=== PATIENT | female | born 1965 | race Caucasian/White ===

== ENCOUNTER 2022-12-22 07:20 | Inpatient (IN) ==
--- NOTE | 2022-11-23 15:16 | PAT Medication Instructions ---
Medication Instructions Date of Service November 23, 2022 Home Medications albuterol sulfate 90 mcg/actuation aerosol inhaler (Ventolin HFA) 1 inh inhalation QID PRN amlodipine 10 mg tablet 10 mg PO HS aspirin 81 mg tablet,delayed release 81 mg PO QAM atorvastatin 40 mg tablet (Lipitor) 40 mg PO HS celecoxib 400 mg capsule (Celebrex) 400 mg PO QAM cholecalciferol (vitamin D3) 50 mcg (2,000 unit) capsule (Vitamin D3) 50 mcg PO QAM citalopram 20 mg tablet (Celexa) 20 mg PO QAM duloxetine 20 mg capsule,delayed release (Cymbalta) 20 mg PO QAM eszopiclone 2 mg tablet (Lunesta) 2 mg PO HS fluticasone propionate 115 mcg-salmeterol 21 mcg/actuation HFA inhaler (Advair HFA) 2 puff inhalation BID PRN losartan 100 mg tablet (Cozaar) 100 mg PO QAM metformin 500 mg tablet 500 mg PO BID methocarbamol 750 mg tablet 750 mg PO BID mirtazapine 30 mg tablet (Remeron) 30 mg PO HS montelukast 10 mg tablet (Singulair) 10 mg PO QAM pantoprazole 40 mg tablet,delayed release (Protonix) 40 mg PO HS tramadol 50 mg tablet 50 mg PO BID PRN ASK your surgeon for instructions celecoxib 400 mg capsule (Celebrex) 400 mg PO QAM ASK your prescriber and surgeon aspirin 81 mg tablet,delayed release 81 mg PO QAM DO NOT take the morning of surgery metformin 500 mg tablet 500 mg PO BID methocarbamol 750 mg tablet 750 mg PO BID losartan 100 mg tablet (Cozaar) 100 mg PO QAM cholecalciferol (vitamin D3) 50 mcg (2,000 unit) capsule (Vitamin D3) 50 mcg PO QAM Take morning of surgery With a small sip of water, OTHERWISE NOTHING TO EAT OR DRINK AFTER MIDNIGHT: tramadol 50 mg tablet 50 mg PO BID PRN(if needed) montelukast 10 mg tablet (Singulair) 10 mg PO QAM fluticasone propionate 115 mcg-salmeterol 21 mcg/actuation HFA inhaler (Advair HFA) 2 puff inhalation BID PRN(if needed) citalopram 20 mg tablet (Celexa) 20 mg PO QAM duloxetine 20 mg capsule,delayed release (Cymbalta) 20 mg PO QAM albuterol sulfate 90 mcg/actuation aerosol inhaler (Ventolin HFA) 1 inh inhalation QID PRN(use if needed; please bring with you to hospital day of surgery if possible) Take evening before surgery tramadol 50 mg tablet 50 mg PO BID PRN(if needed) pantoprazole 40 mg tablet,delayed release (Protonix) 40 mg PO HS mirtazapine 30 mg tablet (Remeron) 30 mg PO HS metformin 500 mg tablet 500 mg PO BID methocarbamol 750 mg tablet 750 mg PO BID fluticasone propionate 115 mcg-salmeterol 21 mcg/actuation HFA inhaler (Advair HFA) 2 puff inhalation BID PRN(if needed) eszopiclone 2 mg tablet (Lunesta) 2 mg PO HS atorvastatin 40 mg tablet (Lipitor) 40 mg PO HS amlodipine 10 mg tablet 10 mg PO HS albuterol sulfate 90 mcg/actuation aerosol inhaler (Ventolin HFA) 1 inh inhalation QID PRN(if needed) Other Notes If you have any questions please call us at [phone] or [phone] or [phone] or [phone]
--- NOTE | 2022-11-28 11:24 | Anesthesiology Consultation ---
Date of Service November 28, 2022 Assessment & Plan (1) Encounter for pre-operative examination: Chart Review Chart Review: Acceptable Risk for Surgery (pending PCP clearance 11/30/22, carotid doppler, and cardio clearance ) and Patient seen in Pre Admission Testing - Awaiting PCP clearance 11/30/22 (Michelle HAYWARD in [place], [place]) (Please send preop testing for review) - Awaiting cardio clearance letter from Dr. James's office (Leanne calling cardio office again 11/29/22) - Please fax cardio office (Dr. De Leon) for most recent carotid testing - Check [facility] AM DOS Per PAT appt on 11/28/22, patient denies any recent travel or large group activities. Pt is vaccinated for Covid. Will leave to surgeon's discretion if preop Covid testing needed. Educated on importance of using Covid precautions o ne week prior to surgery Teaching & Discussion Pre-Anesthesia Teaching/Discussion Notes: Instructed NPO after midnight before surgery,except medications with 15 cc of water. Medication instructions provided according to the PAT guidelines. History Surgery Operation Date: 12/12/22 10:05 Proposed Procedures p L5-S1 Decompression and Fusion - Kiko James, Height/Weight Height: 4 ft 11 in Weight: 87.6 kg Allergies Allergy/AdvReac Type Severity Reaction Status Date / Time cephalexin [From Keflex] Allergy Intermediate Hives Verified 11/23/22 14:03 latex Allergy Intermediate Hives Verified 11/23/22 14:03 Medications Home Medications Medication Instructions Recorded Confirmed Last Taken albuterol sulfate 90 mcg/actuation 1 inh inhalation QID PRN Wheezing 11/23/22 11/23/22 Unknown aerosol inhaler (Ventolin HFA) amlodipine 10 mg tablet 10 mg PO HS 11/23/22 11/23/22 Unknown aspirin 81 mg tablet,delayed 81 mg PO QAM 11/23/22 11/23/22 Unknown release atorvastatin 40 mg tablet (Lipitor) 40 mg PO HS 11/23/22 11/23/22 Unknown celecoxib 400 mg capsule (Celebrex) 400 mg PO QAM 11/23/22 11/23/22 Unknown cholecalciferol (vitamin D3) 50 50 mcg PO QAM 11/23/22 11/23/22 Unknown mcg (2,000 unit) capsule (Vitamin D3) citalopram 20 mg tablet (Celexa) 20 mg PO QAM 11/23/22 11/23/22 Unknown duloxetine 20 mg capsule,delayed 20 mg PO QAM 11/23/22 11/23/22 Unknown release (Cymbalta) eszopiclone 2 mg tablet (Lunesta) 2 mg PO HS 11/23/22 11/23/22 Unknown fluticasone propionate 115 2 puff inhalation BID PRN Wheezing 11/23/22 11/23/22 Unknown mcg-salmeterol 21 mcg/actuation HFA inhaler (Advair HFA) losartan 100 mg tablet (Cozaar) 100 mg PO QAM 11/23/22 11/23/22 Unknown metformin 500 mg tablet 500 mg PO BID 11/23/22 11/23/22 Unknown methocarbamol 750 mg tablet 750 mg PO BID 11/23/22 11/23/22 Unknown mirtazapine 30 mg tablet (Remeron) 30 mg PO HS 11/23/22 11/23/22 Unknown montelukast 10 mg tablet 10 mg PO QAM 11/23/22 11/23/22 Unknown (Singulair) pantoprazole 40 mg tablet,delayed 40 mg PO HS 11/23/22 11/23/22 Unknown release (Protonix) tramadol 50 mg tablet 50 mg PO BID PRN Pain 11/23/22 11/23/22 Unknown Past Medical History Medical History Anxiety Chronic back pain Chronic obstructive pulmonary disease very rare rescue inhaler use breathing stable Diabetes mellitus, type 2 stable and controlled per patient GERD (gastroesophageal reflux disease) stable and controlled per patient History of COVID-19 x2, most recent was 2 yrs ago > not hospitalized - no current symptoms Hyperlipidemia Hypertension Insomnia On home oxygen therapy O2 AT 2LPM AT HS Osteoarthritis Sleep apnea presumed - no formal testing Stroke 2019 > reason for lipitor/aspirin > no residual effects > [facility] [place] Exercise / Class Metabolic Activity III < 4 Walking/Shop/Light housework (one flight of stairs- mild SOB, no chest pain ) Past Family History Family History Mother Diabetes mellitus, type 2 Father S/P triple vessel bypass Past Surgical History Surgical History (Updated 11/28/22 @ 12:37 by Marli Borja PA-C) History of appendectomy History of arthroscopy right hip - 09/06/22 (Dr. Reyes at [place])- Dr Reyes and Dr. James aware of hip surgery and upcoming lumbar surgery per patient History of cardiac cath 10 yrs ago > no stents History of section x1 History of colonoscopy History of dilatation and curettage History of ear surgery due to infected mastoid bone History of esophagogastroduodenoscopy (EGD) History of hysterectomy History of tonsillectomy History of tooth extraction Hx MRSA infection with I&D to back to clear > approx 4 yrs ago Hx of hernia repair Hx SBO with surgical correction History of PONV No Hx of Motion Sickness and History of PONV (remote hx - 1 episode - improved with anti-nausea medication ) Social History Smoking Status: Current every day smoker tobacco type: cigarettes Do You Dip or Chew Tobacco: No Smoking End Date: 1/2 pack/day Hx Alcohol Use: No Hx Substance Use: No substance use type: does not use Review of Systems Chronic wheezing - stable/chronic Patient denies chest pain, shortness of breath, dyspnea on exertion, cough, palpitations. No hx of seizures, NE. No hx of blood clots or blood transfusions Physical Exam Vital Signs VITALS BP 108/68 P 85 TEMP 97.9 SP02 94% RESP 16 Constitutional no acute distress ENMT Mouth: no TMJ clicking Thyromental Distance: < 3.5 Finger Breadths (3.0) Mallampati Class: III Missing molars Neck + short neck; neck extension not limited Respiratory normal respiratory effort; no respiratory distress Auscultation: lungs clear to auscultation bilaterally and + diminished lung sounds (mildly throughout ); no wheezes Cardiovascular Rate/Rhythm: regular rate and regular rhythm Heart Sounds: no murmur Vessels: no carotid bruit Musculoskeletal Spine: no pain with cervical ROM Extremities: extremities normal to inspection Psychiatric Orientation: alert Lab Results Anesthesia Preop Results Results Anesthesia Widget: WBC 14.12 K/ul (4.8-10.8) H 11/28/22 Hgb 13.6 g/dl (12.0-16.0) 11/28/22 Hct 41.8 % (37.0-47.0) 11/28/22 Plt 337 K/uL (130-400) 11/28/22 Na 138 mmol/L (136-145) 11/28/22 K 4.3 mmol/L (3.5-5.1) 11/28/22 Cl 106 mmol/L (98-107) 11/28/22 CO2 26 mmol/L (21-32) 11/28/22 BUN 15 mg/dl (6-23) 11/28/22 Creat 0.74 mg/dl (0.6-1.2) 11/28/22 Glucose Level 145 mg/dl (70-99(Fasting)) H 11/28/22 PT 10.1 Seconds (9.0-12.0) 11/28/22 PTT 27.3 Seconds (21.0-31.0) 11/28/22 INR 0.9 (0.9-1.1) 11/28/22 HA1c 7.6 % (4.5-5.6) H 11/28/22 Urine Color Yellow 11/28/22 Urine Appearance Clear (Clear) 11/28/22 Urine pH 5.0 (4.5-7.5) 11/28/22 Urine Specific [place] 1.021 (1.000-1.030) 11/28/22 Urine Protein Negative (Negative) 11/28/22 Urine Glucose (UA) Negative (Negative) 11/28/22 Urine Ketones Negative (Negative) 11/28/22 Urine Blood Negative (Negative) 11/28/22 Urine Nitrite Negative (Negative) 11/28/22 Urine Bilirubin Negative (Negative) 11/28/22 Urine Urobilinogen Negative (Negative) 11/28/22 Urine Leukocyte Esterase Trace (Negative) H 11/28/22 Urine WBC (Auto) 5-10 /hpf (0-5) H 11/28/22 Urine RBC (Auto) 0-4 /hpf (0-4) 11/28/22 Urine Hyaline Casts (Auto) 1-5 /lpf (0-5) 11/28/22 Urine Epithelial Cells (Auto) >30 /lpf (0-5) H 11/28/22 Urine Bacteria (Auto) Negative (Negative) 11/28/22 Blood Type A Negative 11/28/22 Antibody Screen NEGATIVE 11/28/22 Testing Laboratory Results Mild leukocytosis - surgeon's office informed - will leave to surgeon's discretion how to proceed Electrocardiogram Date: 11/28/22 Findings: + NSR @ (75bpm ) Normal EKG per cardio Chest X-Ray Date: 11/28/22 Findings: + NAD Echocardiogram Date: 05/23/22 EF: 55-60% LV Function: normal RWMA: + none Other Findings: no LVH or no diastolic dysfunction Valvular Disease: + no significant valvular disease Stress Test Date: 05/23/22 Type: nuclear Negative for ischemia and baseline EKG abnormalhorizontal ST segment depression in leads I was noted at baseline LV perfusion is normal. No evidence of inducible ischemia. Normal wall motion in the defect area. No evidence of transient ischemic dilation. LV function poststress is normal. COVID-19 Risk Screen Screening Information COVID-19 Screen Date: 11/28/22 Exposure 21 Days Family/Household +COVID Last 21 Days: No Exposure 10 Days Any COVID Exposure Last 10 Days: No Symptoms Last 10 Days Experienced COVID Sx Last 10 Days: No + COVID 0-90 Days COVID + in Last 0-90 Days: No Risk Plan COVID Risk Plan: No Risk Identified Patient Education COVID Preop Screening Education Complete: Yes
[~2022-12-22 07:20] MED LIST: 300mg Preop IV SCH; 600mg Preop IV SCH; ACETAMINOPHEN 500 MG TAB PO SCH; CeleBREX 200 MG CAP PO SCH; GABAPENTIN 600 MG DOSE PO SCH; LR 15ML/HR IV SCH; LR 60ML/HR IV SCH
[2022-12-22] MEDS ORDERED: fentaNYL citrate PF 100 MCG/2 ML VIAL ONE (08:34)
[2022-12-22] MEDS ORDERED: SUGAMMADEX SODIUM 200 MG/2 ML VIAL IV ONE (08:35)
[2022-12-22] MEDS ORDERED: ONDANSETRON INJ 2 MG/ML 2 ML VIAL ONE (08:35)
[2022-12-22] MEDS ORDERED: LIDOCAINE 2% 2 ML VIAL/AMP(20MG/ML) INFIL ONE (08:35)
[2022-12-22] MEDS ORDERED: PROPOFOL IV EMULSION 10 MG/ML 20 ML VIAL IV ONE (08:35)
[2022-12-22] MEDS ORDERED: ROCURONIUM BROMIDE 10 MG/ML 5 ML VIAL IV ONE (08:35)
[2022-12-22] MEDS ORDERED: MIDAZOLAM HCL 1 MG/ML 2ML VIAL ONE (08:35)
--- NOTE | 2022-12-22 09:03 | History & Physical Bridge Note ---
Date of Service December 22, 2022 History & Physical Bridge Note I have examined the patient, reviewed the History & Physical and in the interval since the performance of the History & Physical I have noted the following changes of clinical significance: no changes noted
[2022-12-22] MEDS ORDERED: PROMETHAZINE HCL 12.5 MG in SODIUM CHLORIDE 0.9% 50 ML IV PRN ×2 (09:06→12:29)
[2022-12-22] MEDS ORDERED: ePHEDrine sulfate 50 MG/ML AMP IV PRN (09:06)
[2022-12-22] MEDS ORDERED: ATROPINE SULFATE 0.1 MG/ML 10ML SYR IV PRN (09:06)
[2022-12-22] MEDS ORDERED: HYDROmorphone INJ 1 MG/ML SYRINGE IV PRN ×2 (09:06→12:29)
[2022-12-22] MEDS ORDERED: NALOXONE HCL 0.4 MG/1 ML VIAL/CARP IV PRN ×2 (09:06→12:29)
[2022-12-22] MEDS ORDERED: LABETALOL HCL IV 5 MG/ML 20ML IV PRN (09:06)
[2022-12-22] MEDS ORDERED: FLUMAZENIL 0.1 MG/1 ML 10 ML VIAL IV PRN (09:06)
[2022-12-22] MEDS ORDERED: ONDANSETRON INJ 2 MG/ML 2 ML VIAL IV PRN ×2 (09:06→12:29)
--- NOTE | 2022-12-22 09:07 | History & Physical Report ---
Date of Service December 22, 2022 Assessment & Plan (1) Neurogenic claudication due to lumbar spinal stenosis: Plan: L5 S1 decompression and fusion History of Present Illness Chief Complaint: back and leg pain Primary Care Provider: Casey Macedo This is a 57-year-old female presents with chronic persistent back and leg pain and failing since course of nonoperative care is here for surgical invention. Allergies Allergy/AdvReac Type Severity Reaction Status Date / Time cephalexin [From Keflex] Allergy Intermediate Hives Verified 12/22/22 07:51 latex Allergy Intermediate Hives Verified 12/22/22 07:51 Home Medications Medication Instructions Recorded Confirmed Type albuterol sulfate 90 mcg/actuation 1 inh inhalation QID PRN Wheezing 11/23/22 12/22/22 History aerosol inhaler (Ventolin HFA) amlodipine 10 mg tablet 10 mg PO HS 11/23/22 12/22/22 History aspirin 81 mg tablet,delayed 81 mg PO QAM 11/23/22 12/22/22 History release atorvastatin 40 mg tablet (Lipitor) 40 mg PO HS 11/23/22 12/22/22 History celecoxib 400 mg capsule (Celebrex) 400 mg PO QAM 11/23/22 12/22/22 History cholecalciferol (vitamin D3) 50 50 mcg PO QAM 11/23/22 12/22/22 History mcg (2,000 unit) capsule (Vitamin D3) citalopram 20 mg tablet (Celexa) 20 mg PO QAM 11/23/22 12/22/22 History duloxetine 20 mg capsule,delayed 20 mg PO QAM 11/23/22 12/22/22 History release (Cymbalta) eszopiclone 2 mg tablet (Lunesta) 2 mg PO HS 11/23/22 12/22/22 History fluticasone propionate 115 2 puff inhalation BID PRN Wheezing 11/23/22 12/22/22 History mcg-salmeterol 21 mcg/actuation HFA inhaler (Advair HFA) losartan 100 mg tablet (Cozaar) 100 mg PO QAM 11/23/22 12/22/22 History metformin 500 mg tablet 500 mg PO BID 11/23/22 12/22/22 History methocarbamol 750 mg tablet 750 mg PO BID 11/23/22 12/22/22 History mirtazapine 30 mg tablet (Remeron) 30 mg PO HS 11/23/22 12/22/22 History montelukast 10 mg tablet 10 mg PO QAM 11/23/22 12/22/22 History (Singulair) pantoprazole 40 mg tablet,delayed 40 mg PO HS 11/23/22 12/22/22 History release (Protonix) tramadol 50 mg tablet 50 mg PO BID PRN Pain 11/23/22 12/22/22 History Past Med/Surg History Medical History (Updated 12/22/22 @ 09:05 by Kiko James, ) Anxiety Chronic back pain Chronic obstructive pulmonary disease very rare rescue inhaler use breathing stable Diabetes mellitus, type 2 stable and controlled per patient GERD (gastroesophageal reflux disease) stable and controlled per patient History of COVID-19 x2, most recent was 2 yrs ago > not hospitalized - no current symptoms Hyperlipidemia Hypertension Insomnia On home oxygen therapy O2 AT 2LPM AT Osteoarthritis Sleep apnea presumed - no formal testing Stroke 2018 > reason for lipitor/aspirin > no residual effects > [facility] Surgical History History of appendectomy History of arthroscopy right hip - 09/06/22 (Dr. Reyes at [place])- Dr Reyes and Dr. James aware of hip surgery and upcoming lumbar surgery per patient History of cardiac cath 10 yrs ago > no stents History of section x1 History of colonoscopy History of dilatation and curettage History of ear surgery due to infected mastoid bone History of esophagogastroduodenoscopy (EGD) History of hysterectomy History of tonsillectomy History of tooth extraction Hx MRSA infection with I&D to back to clear > approx 4 yrs ago Hx of hernia repair Hx SBO with surgical correction Family History Mother Diabetes mellitus, type 2 Father S/P triple vessel bypass Social History Smoking Status: Current every day smoker Smoking End Date: 1/2 pack/day; Second Hand Exposure: No; Do You Dip or Chew Tobacco: No; Tobacco Cessation Education Requested by Patient: No Hx Alcohol Use: No Hx Substance Use: No Preferred Language: Greek Communication Ability: Effective Road Traffic Controller Required: No Beliefs That Will Affect Care: None Current Living Situation: Spouse Other Information That Helps Us Care for You: No Feels Safe at Home: Yes Safety Concerns: Feels Safe At This Time Assistive Devices: Glasses and Oxygen - at Night Physical Exam Physical Exam: alert and oriented heart regular rate lungs clear Results & Data Results & Data Vital Signs (Past 12 Hours) Vital Signs Temp Pulse Resp BP Pulse Ox O2 Del Method 12/22/22 07:45 36.9 C 83 20 136/84 98 Room Air
[2022-12-22] MEDS ORDERED: ceFAZolin 330 MG/ML 1 GM VIAL ONE (09:11)
[2022-12-22] MEDS ORDERED: BUPIVACAINE/EPINEPHRINE 0.25% 1:200,000 30 ML VIAL ONE (09:11)
[2022-12-22] MEDS ORDERED: FLOSEAL HEMOSTATIC MATRIX 10ML TOP ONE (10:17)
--- NOTE | 2022-12-22 11:04 | Fluoroscopy Report ---
FL lumbar spine 2-3V CLINICAL HISTORY: L5-L5otzqonc low back pain COMPARISON STUDY: None FLUOROSCOPY TIME: 31.9 seconds FLUOROSCOPY IMAGES: 2 EXPOSURE DOSE: 32.69 mGy FINDINGS: Posterior interbody gurjit and screw fusion with discectomy at L5-S1. Several millimeters ante rolisthesis L5 on S1. Hardware appears intact. No unexpected opaque foreign bodies. IMPRESSION: Fluoroscopic assistance was above. ACT 112: Negative or not required by law. Electronically signed by: Ken Granados M.D. 12/22/2022 11:03 AM
--- NOTE | 2022-12-22 11:05 | Operative Report ---
Post Operative Report Pre & Post Diagnosis Operation Date: 12/22/22 09:05 Pre-Op Diagnosis: Lumbar spinal stenosis with radiculopathy. Lumbar spondylolisthesis L5-S1. Post-Op Diagnosis: Same I identified the patient and participated in the time-out.: Yes Procedure Operation Date: 12/22/22 09:05 Actual Procedures 1. Limited motion bilaterally for seconds and from 90s 08/23/2004 was 1. #2 posterior spinal fusion L5-S1. #3 placement of posterior instrumentation of S1. #4 interbody fusion L5-S1. #5 placement of Spira 10 x 22 mm cages x2 at L5-S1. #6 placement locally harvested morselized autograft in the posterior gutters per #7 placement of I factor, to be tested in the interbody space and posterior gutters. Surgeon Kiko James, DO Balloon Tester Abiodun Cash Estimated Blood Loss 100 Findings See Below The patient is 4 foot 11 weighs over 86 kg with a BMI in excess of 38. Patient's body habitus did contribute to significant technical difficulty require deepest retractors along her instruments in order to perform her procedure. This at least 50% increased operative time. Specimens none Indications This is a 57-year-old female who presents with the above-mentioned diagnosis. After failing course of nonoperative care is here for surgical invention. Description of Procedure Patient was mild identified informed consent obtained. Patient was then taken to the operative suite on elevation placed in a prone position on the Tashi table top of the Otis frame. All bony promises well-padded I suspected to ensure no external pressure placed upon them. This with lumbar spine was prepped and draped in a sterile fashion. Sharp dissection with the assistance of Bovie cautery performed to expose the lamina and transverse processes of L5 and the sacral ala bilaterally. Obvious bilateral pars defect appreciated. A complete laminectomy of L5 and partial laminectomy of L4 was performed including bilateral medial facetectomy's and families addressing all neural compression. Pedicle screws were then placed in L5 and S1 levels bilaterally with assistance of fluoroscopy and the properly sized gurjit placed. By way of a transforaminal approach on the right discectomy of L5-S1 was performed endplates greater distal cortical knee bone and a 10 x 22 mm Spira cage with I factor tapped in position. Then proceeded to the left transforaminal's region completed the discectomy and endplate secured to subcortical bone. A second 10 x 22 mm bio cage with I factor tapped in position. The rods were then locked in the proposition bilaterally. The transverse processes of L5 and the sacral ala produced a good occluding bone. I fragment of the intestine likely have stenosis Was placed in the posterior gutters. 15 round JESSIE inserted. The incision was then closed with 1 Vicryl in the fascia 2-0 Vicryl subcutaneously and 4 Monocryl for final skin closure. Steri-Strips and sterile dressing placed. Patient was then taken to PACU in stable condition. Please note spinal cord monitoring was utilized at the procedure no changes noted. Sneha Cash was present at the entire surgery and with the patient positioning complex course of the surgery and final skin closure. I attest to the content of the Intraoperative Record and any orders documented therein. Any exceptions are noted below.
[2022-12-22] MEDS: fentaNYL citrate PF 100 MCG/2 ML VIAL IV PRN ×3 (11:40→11:50)
--- NOTE | 2022-12-22 12:06 | Anesthesiology Progress Note ---
Date of Service December 22, 2022 Anesthesia Post Procedure Vital Signs Vital Signs: Temp Pulse Pulse Resp BP Pulse Ox O2 Del Method 12/22/22 11:45 79 14 111/66 94 Nasal Cannula 12/22/22 11:55 81 17 96/61 L 94 Nasal Cannula 12/22/22 11:35 88 17 112/69 95 Nasal Cannula 12/22/22 11:28 36.1 C L 87 18 151/98 H 98 Oxymask 12/22/22 07:45 36.9 C 83 20 136/84 98 Room Air O2 Flow Rate 12/22/22 11:45 4 12/22/22 11:55 4 12/22/22 11:35 4 12/22/22 11:28 10 12/22/22 07:45 Pain Intensity Bilateral Back: Pain Intensity: 5 Back: Pain Intensity: 5 Transfer of Care Handoff Completed per policy Notes Mental Status: alert / awake / arousable Patient Amnestic to Procedure: Yes Nausea / Vomiting: adequately controlled Pain: adequately controlled Airway Patency, RR, SpO2: stable & adequate BP & HR: stable & adequate Hydration State: stable & adequate Anesthetic Complications: no major complications apparent
[2022-12-22] MEDS ORDERED: HYDROmorphone INJ 0.5 MG/0.5 ML SYR IV PRN (12:29)
[2022-12-22] MEDS ORDERED: traMADol HCL 50 MG TABLET PO PRN (12:29)
[2022-12-22] MEDS ORDERED: PHARMACY GLYCEMIC MGMT CONSULT PRN (12:29)
[2022-12-22] MEDS ORDERED: DO NOT ADMINISTER FLU VACCINE PRN (12:29)
[2022-12-22] MEDS ORDERED: LORazepam 2 MG/1 ML VIAL IV PRN (12:29)
[2022-12-22] MEDS ORDERED: DO NOT ADMINISTER PNEUMOCOCCAL VACCINE PRN (12:29)
[2022-12-22] MEDS ORDERED: METOCLOPRAMIDE HCL INJ 5 MG/ML 2 ML VIAL IV PRN (12:29)
[2022-12-22] MEDS ORDERED: FAMOTIDINE 20 MG TAB PO PRN (12:29)
[2022-12-22] MEDS ORDERED: ONDANSETRON 4 MG OD TAB PO PRN (12:29)
[2022-12-22] MEDS ORDERED: ACETAMINOPHEN 1,000 MG/100 ML VIAL IV PRN (12:29)
[2022-12-22] MEDS ORDERED: ALUMINUM/MAGNESIUM SUSP 30 ML UDC PO PRN (12:29)
[2022-12-22] MEDS ORDERED: SOD PHOSPHATE/SOD BIPHOSPHATE ENEMA 132 ML BTL PR PRN (12:29)
[2022-12-22] MEDS ORDERED: diphenhydrAMINE Capsule 25 MG CAP PO PRN (12:29)
[2022-12-22] MEDS ORDERED: ALBUTEROL HFA 8 GM INHALER INH PRN (12:29)
[2022-12-22] MEDS ORDERED: LORazepam 0.5 MG TAB PO PRN (12:29)
[2022-12-22] MEDS ORDERED: MAGNESIUM HYDROXIDE SUSP 30 ML UDC PO PRN (12:29)
[2022-12-22] MEDS ORDERED: hydrOXYzine HCl 25 MG TAB PO PRN (12:29)
[2022-12-22] MEDS ORDERED: bisacodyL 10 MG SUPP PR PRN (12:29)
[2022-12-22] MEDS ORDERED: ACETAMINOPHEN 500 MG TAB PO PRN (12:29)
[2022-12-22] MEDS: SODIUM CHLORIDE 0.9% 1000ML 1,000 ML IV SCH ×2 (12:51→22:50)
--- NOTE | 2022-12-22 13:19 | Consultation ---
Date of Consultation December 22, 2022 Assessment & Plan (1) Neurogenic claudication due to lumbar spinal stenosis: (2) Diabetes mellitus, type 2: (3) Hypertension: (4) Chronic obstructive pulmonary disease: (5) History of TIA (transient ischemic attack): Plan 57-year-old female that presented to the [facility] today for an elective L5-S1 decompression and fusion surgery under the care of Dr. James after failed outpatient conservative management. Additional PMH includes HTN, COPD, gxg-lbafxti-twgeakvxe diabetes type 2, history of TIA ( 2018 without residual effect), and GERD. 100 mL EBL; JESSIE drain x1. No mars catheter. Wears 3 LNC at home PRN at HS for COPD. Tolerative clear liquid diet. Goal for bedside chair for Neurogenic claudication due to lumbar spinal stenosis: POD# 0 s/p L5-S1 decompression fusion surgery under the care of Dr. James. Per ortho for pain control, wound care, anticoagulation and activities. EBL: 100mL; Monitor H&H, pre op Hgb from 11/28 13.6; trend in AM Continue incentive spirometry, demonstrated appropriate use of ISB at bedside PT/OT when appropriate Diabetes mellitus, type II: Chronic, stable Preop testing 11/28 A1c 7.6 Diet-controlled HTN: Chronic stable Takes amlodipine and losartan; continue Pre-op ECHO 05/23/2022; EF 55 to 60% without any diastolic dysfunction or valve abnormalities; normal wall motion. EKG reviewed NSR; QTc 424. COPD: Chronic stable Wear 3 L supplemental oxygen at home PRN at night; on 3 LNC post op Takes Advair and Singulair; continue Albuterol as needed History of TIA: Chronic stable [facility] effects Takes high-dose Lipitor and baby aspirin; continue GERD: Chronic stable Takes Protonix; continue Disposition: PCP: Dr. Macedo CODE STATUS: Full code VTE prophylaxis: Per admitting team I spent a total of 60 minutes coordinating, documenting, and providing care for this patient excluding time spent in the performance of separately billed services. All of the aforementioned completed while collaborating with the assigned attending physician for a full treatment plan. Please see their addendum for further details. Supervising Physician Co-Signing Physician Notes I have seen and examined the patient and have discussed the case with the provider above. I agree with the assessment and plan as stated. 57 yo F s/p lumbar surgery today. We are consulted for post operative medical management. She reports pain not controlled with Tylenol and is noted to be mildly hypotensive. Will continue with post operative IVF and provide a small bolus to help her remain in a good BP window to receive narcotic pain medication. She otherwise reports no numbness in her feet, chest pain, SOB or other issues at this time. Mars in place. My exam findings are consistent with that noted above. Cont medical management as outlined above. Thank you for this consultation. DO Sharif History of Present Illness Requesting Physician: Dr. James Reason for Consultation: Postoperative medical management Attending Physician: Kiko James DO History of Present Illness Ms. Brunson is a 57-year-old female that presented to the [facility] today for an elective L5-S1 decompression and fusion surgery under the care of Dr. James after failed outpatient conservative management. Additional PMH includes HTN, COPD, ylj-hacktwe-ucnxqhjbu diabetes type 2, history of TIA ( 2019 without residual effect), and GERD. Follows with Dr. Macedo as PCP with [facility]. Received Fentanyl postop in the recovery room for pain. When I entered the room patient sitting upright in her bed in no apparent distress eating and tolerating clear liquid diet. Complains of incisional pain; BP 95/61; likely from fentanyl. For now we will give IV Tylenol and reassess BP in coming hours. Vertical lower back incision clean dry and intact; JESSIE drain x1 with shala red bloody output. States she has COPD and supplemental oxygen at home however only uses this as needed at night; 3 L. Postoperatively SPO2 ranging 94 to 96% on 3 L nasal cannula and patient in no apparent distress. Pre-op ECHO performed 05/23/2022 through the [facility] [employer] system. EF 55 to 60% without any diastolic dysfunction or valve abnormalities; normal wall motion. EKG reviewed normal sinus rhythm QTc 424. Pt denies LUU, dizziness, visual or auditory changes, SOB, chest pain, palpitations, N/V/D, peripheral neuropathy, abdominal pain or tenderness. [facility] hospitalist service was consulted for postoperative medical management. Please see A/P for further details. Thank you kindly for this consultation and please feel free to reach out to any member of the [facility] hospitalist team via Shar[employer] text 11/12. Allergies Allergy/AdvReac Type Severity Reaction Status Date / Time cephalexin [From Keflex] Allergy Intermediate Hives Verified 12/22/22 07:51 latex Allergy Intermediate Hives Verified 12/22/22 07:51 Home Medications Medication Instructions Recorded Confirmed Type albuterol sulfate 90 mcg/actuation 1 inh inhalation QID PRN Wheezing 11/23/22 12/22/22 History aerosol inhaler (Ventolin HFA) amlodipine 10 mg tablet 10 mg PO HS 11/23/22 12/22/22 History aspirin 81 mg tablet,delayed 81 mg PO QAM 11/23/22 12/22/22 History release atorvastatin 40 mg tablet (Lipitor) 40 mg PO HS 11/23/22 12/22/22 History celecoxib 400 mg capsule (Celebrex) 400 mg PO QAM 11/23/22 12/22/22 History cholecalciferol (vitamin D3) 50 50 mcg PO QAM 11/23/22 12/22/22 History mcg (2,000 unit) capsule (Vitamin D3) citalopram 20 mg tablet (Celexa) 20 mg PO QAM 11/23/22 12/22/22 History duloxetine 20 mg capsule,delayed 20 mg PO QAM 11/23/22 12/22/22 History release (Cymbalta) eszopiclone 2 mg tablet (Lunesta) 2 mg PO HS 11/23/22 12/22/22 History fluticasone propionate 115 2 puff inhalation BID PRN Wheezing 11/23/22 12/22/22 History mcg-salmeterol 21 mcg/actuation HFA inhaler (Advair HFA) losartan 100 mg tablet (Cozaar) 100 mg PO QAM 11/23/22 12/22/22 History metformin 500 mg tablet 500 mg PO BID 11/23/22 12/22/22 History methocarbamol 750 mg tablet 750 mg PO BID 11/23/22 12/22/22 History mirtazapine 30 mg tablet (Remeron) 30 mg PO HS 11/23/22 12/22/22 History montelukast 10 mg tablet 10 mg PO QAM 11/23/22 12/22/22 History (Singulair) pantoprazole 40 mg tablet,delayed 40 mg PO HS 11/23/22 12/22/22 History release (Protonix) tramadol 50 mg tablet 50 mg PO BID PRN Pain 11/23/22 12/22/22 History Patient History Medical History (Updated 12/22/22 @ 13:35 by YESY Ward) Anxiety Chronic back pain Chronic obstructive pulmonary disease very rare rescue inhaler use breathing stable Diabetes mellitus, type 2 stable and controlled per patient GERD (gastroesophageal reflux disease) stable and controlled per patient History of COVID-19 x2, most recent was 2 yrs ago > not hospitalized - no current symptoms History of CVA (cerebrovascular accident) History of TIA (transient ischemic attack) Hyperlipidemia Hypertension Insomnia On home oxygen therapy O2 AT 2LPM AT Osteoarthritis Sleep apnea presumed - no formal testing Stroke 2019 > reason for lipitor/aspirin > no residual effects > [facility] Surgical History History of appendectomy History of arthroscopy right hip - 09/06/22 (Dr. Reyes at [place])- Dr Reyes and Dr. James aware of hip surgery and upcoming lumbar surgery per patient History of cardiac cath 10 yrs ago > no stents History of section x1 History of colonoscopy History of dilatation and curettage History of ear surgery due to infected mastoid bone History of esophagogastroduodenoscopy (EGD) History of hysterectomy History of tonsillectomy History of tooth extraction Hx MRSA infection with I&D to back to clear > approx 4 yrs ago Hx of hernia repair Hx SBO with surgical correction Family History Mother Diabetes mellitus, type 2 Father S/P triple vessel bypass Social History Smoking Status: Current every day smoker Smoking End Date: 1/2 pack/day; Second Hand Exposure: No; Do You Dip or Chew Tobacco: No; Tobacco Cessation Education Requested by Patient: No Hx Alcohol Use: No Hx Substance Use: No Preferred Language: [place] Communication Ability: Effective Subscription Crew Leader Required: No Beliefs That Will Affect Care: None Current Living Situation: Spouse Other Information That Helps Us Care for You: No Feels Safe at Home: Yes Safety Concerns: Feels Safe At This Time Assistive Devices: Walker Review of Systems Review of Systems: Neuro: (-) Falls, trauma, slurred speech HEENT: (-) LUU, dizziness, dysphagia, visual or auditory changes CV: (-) CP, palpitations, swelling Resp: (-) SOB GI: (-) appetite changes, N/V/D, bowel changes : (-) urinary changes Skin: (-) rashes Psych: (-) anxiety, depression Physical Exam Physical Exam: Neuro: AAOx4, PERRLA, no aphagia, memory changes, CNII-XII grossly intact HEENT: head normocephalic, moist mucus membranes CV: S1/S2, (-) M/G/R, (-) edema, cap refill < 3 seconds . JESSIE drain x1 with shala red bloody output Resp: Lungs CTA in all sanchez. On 3 LNC GI: Abdomen S/NT/ND, Ax4 bowel sounds, (-) CVA tenderness Musculoskeletal: 5/5 B/L UE strength, 5/5 B/L LE strength. No gait disturbance Skin: (-) rashes , (-) erythema. Vertical lower back incision dressing clean/dry/intact Psych: euthymic mood Results & Data Vital Signs (Past 12 Hours) Vital Signs Temp Pulse Pulse Resp BP Pulse Ox O2 Del Method 12/22/22 12:47 36.7 C 70 18 95/61 L 92 Nasal Cannula 12/22/22 12:15 Nasal Cannula 12/22/22 12:15 37.0 C 84 16 106/68 95 Nasal Cannula 12/22/22 12:05 36.4 C L 81 16 107/57 L 92 Nasal Cannula 12/22/22 11:45 79 14 111/66 94 Nasal Cannula 12/22/22 11:55 81 17 96/61 L 94 Nasal Cannula 12/22/22 11:35 88 17 112/69 95 Nasal Cannula 12/22/22 11:28 36.1 C L 87 18 151/98 H 98 Oxymask 12/22/22 07:45 36.9 C 83 20 136/84 98 Room Air O2 Flow Rate FiO2 12/22/22 12:47 3 12/22/22 12:15 2 12/22/22 12:15 2 12/22/22 12:05 4 12/22/22 11:45 4 12/22/22 11:55 4 12/22/22 11:35 4 12/22/22 11:28 10 12/22/22 07:45 Diagnostic Findings Lumbar Spine X-Ray 12/22/22 09:05 FL lumbar spine 2-3V CLINICAL HISTORY: L5-[id number] low back pain COMPARISON STUDY: None FLUOROSCOPY TIME: 31.9 seconds FLUOROSCOPY IMAGES: 2 EXPOSURE DOSE: 32.69 mGy FINDINGS: Posterior interbody gurjit and screw fusion with discectomy at L5-S1. Several millimeters anterolisthesis L5 on S1. Hardware appears intact. No unexpected opaque foreign bodies. IMPRESSION: Fluoroscopic assistance was above. ACT 112: Negative or not required by law. Electronically signed by: Ken Granados M.D. 12/22/2022 11:03 AM
[2022-12-22] MEDS ORDERED: DEXTROSE 50% 50 ML SYRINGE IV PRN (14:00)
[2022-12-22] MEDS ORDERED: GLUCOSE 40% GEL 15 GM TUBE PO PRN (14:00)
[2022-12-22] MEDS ORDERED: GLUCOSE 10 TAB/TUBE PO PRN (14:00)
[2022-12-22] MEDS ORDERED: GLUCAGON FOR INJ 1 MG VIAL IM PRN (14:00)
[2022-12-22] MEDS ORDERED: CARBOHYDRATES FOR HYPOGLYCEMIA PO PRN (14:00)
[2022-12-22] MEDS ORDERED: LANTUS PER UNIT CHARGE SC ONE (14:15)
--- NOTE | 2022-12-22 14:19 | Pharmacy Report ---
Pharmacy Glycemic Short Note 2 - Date of Service December 22, 2022 - Glycemic Short BSG Results (Last 24 hours): 12/22/22 12/22/22 08:48 11:33 POC Glucose 125 H 147 H OUTPATIENT ANTIDIABETIC REGIMEN: * metformin 500 mg PO BID * HbA1C = 7.6% (11/28/22) ASSESSMENT: * Ms Brunson is a 57 y/o F s/p surgery. Per JUL, patient did NOT receive any steroids. * Preop BSG was 125 mg/dL. Postop BSG was 147 mg/dL. * Will give patient Lantus 20 units (0.2 unit/kg) as a starting point. NPH not given since patient did not receive steroids. * Patient ate lunch which was uncovered so dinner BSG may be elevated. * Dexamethasone 6 mg IV daily is ordered to begin tomorrow. * Novolog weight-based stress of 2 for now. Tighten with addition of steroids. PLAN FOR INPATIENT GLYCEMIC CONTROL: * Hold outpatient oral diabetes medications * Basal insulin * Lantus 20 units SQ x 1 * Bolus insulin * NovoLog per scale ACHS or Q6hrs while NPO * Goal Range: Low 110 mg/dL - High 140 mg/dL * Correction Factor: 25 mg/dL/unit * Nutritional / Prandial insulin per carb ratio of 1 unit per 8 grams CHO consumed
[2022-12-22] MEDS ORDERED: SODIUM CHLORIDE 0.9% 1000ML 500 ML IV ONE (14:58)
[2022-12-22] MEDS: oxyCODONE HCL IR 5 MG TAB (IMMEDIATE RELEASE) PO PRN ×2 (15:44→19:47)
[2022-12-22] MEDS: CLINDAMYCIN/D5W 600 MG/50 ML BAG IV SCH (16:58)
[2022-12-22] MEDS: INSULIN ASPART PER UNIT CHARGE SC SCH ×2 (17:16→21:42)
[2022-12-22] MEDS: amLODIPine BESYLATE 5 MG TAB PO SCH (19:47)
[2022-12-22] MEDS: DOCUSATE SODIUM/SENNA 50/8.6MG TAB PO SCH (19:49)
[2022-12-22] MEDS: ATORVASTATIN 40 MG TAB PO SCH (19:49)
[2022-12-22] MEDS: MIRTAZAPINE TAB 15 MG TAB PO SCH (19:50)
[2022-12-22] MEDS: PANTOprazole 40 MG TAB PO SCH (19:51)
[2022-12-22] MEDS: ESZOPICLONE 1 MG TAB PO SCH (20:03)
[2022-12-23] MEDS: CLINDAMYCIN/D5W 600 MG/50 ML BAG IV SCH (01:07)
[2022-12-23] MEDS: oxyCODONE HCL IR 5 MG TAB (IMMEDIATE RELEASE) PO PRN ×5 (01:16→22:04)
[2022-12-23 06:02] LABS: Basophils # (auto) 0.08 K/uL (0-0.2); Basophils % (auto) 0.5 %; Eosinophils # (auto) 0.36 K/uL (0-0.50); Eosinophils % (auto) 2.3 %; Hematocrit (blood only) 33.8 % (37.0-47.0); Hemoglobin 10.8 g/dl (12.0-16.0); Immature Granulocytes # (auto) 0.08 K/uL (0.01-0.20); Immature Granulocytes % (auto) 0.5 %; Lymphocytes # (auto) 3.38 K/uL (1.2-3.4); Lymphocytes % (auto) 21.6 %; Mean Corpuscular Hemoglobin 28.1 pg (25.0-34.0); Mean Corpuscular Volume 87.8 fL (80.0-100.0); Mean Platelet Volume 10.3 fL (9.4-12.4); Monocytes # (auto) 1.55 K/uL (0.11-0.59); Monocytes % (auto) 9.9 %; Neutrophils # (auto) 10.17 K/uL (1.40-6.50); Neutrophils % (auto) 65.2 %; Platelet Count 308 K/uL (130-400); RDW Coefficient of Variation 15.6 % (11.5-14.5); RDW Standard Deviation 50.1 fL (36.4-46.3); Red Blood Count 3.85 M/uL (4.20-5.40); White Blood Count 15.62 K/ul (4.8-10.8)
[2022-12-23] MEDS: POLYETHYLENE (MIRALAX) 17 GM PACK PO SCH ×4 (06:04→23:03)
[2022-12-23 06:17] LABS: BUN Creatinine Ratio 13.2 (10-20); Calcium 8.3 mg/dl (8.6-10.3); Creatinine Clr Calc Pharmacy 56.1 ml/min; Est GFR (African American) 67.5 ml/min; Est GFR (Non-African American) 58.2 ml/min; Potassium 4.3 mmol/L (3.5-5.1)
[2022-12-23] MEDS: DULoxetine HCL 20 MG CAP PO SCH (08:17)
[2022-12-23] MEDS: LOSARTAN POTASSIUM 50 MG TAB PO SCH (08:17)
[2022-12-23] MEDS: MONTELUKAST SODIUM 10 MG TABLET PO SCH (08:17)
[2022-12-23] MEDS: ASPIRIN 81 MG ECTAB PO SCH (08:17)
[2022-12-23] MEDS: CITALOPRAM 20 MG TAB PO SCH (08:17)
[2022-12-23] MEDS: dexAMETHasone 6 MG in SYRINGE 0 ML IV SCH (08:18)
[2022-12-23] MEDS: LANTUS PER UNIT CHARGE SC SCH (08:24)
[2022-12-23] MEDS: INSULIN ASPART PER UNIT CHARGE SC SCH ×4 (08:24→20:28)
--- NOTE | 2022-12-23 09:57 | Orthopedic Progress Note ---
Date of Service December 23, 2022 Assessment & Plan (1) Neurogenic claudication due to lumbar spinal stenosis: Plan: Today we will initiate physical therapy monitor her JESSIE output anticipate discharge home the next few days. Admission and Anticipated Discharge Date Admission Date: December 22, 2022 Subjective Back pain controlled leg pain improved Physical Exam Physical Exam: Patient is in the chair at the bedside. Is good strength testing. Is comf ortable. Results & Data Vital Signs (Past 12 Hours) Vital Signs Temp Pulse Resp BP Pulse Ox O2 Del Method O2 Flow Rate 12/23/22 07:03 36.8 C 77 18 127/66 94 Nasal Cannula 2 12/23/22 03:34 36.8 C 80 17 104/62 95 Nasal Cannula 12/22/22 22:50 37 C 75 14 125/62 94 Room Air 12/22/22 22:28 37.0 C 70 18 90/60 L 93 Room Air Queries Orthopedic Spine Obesity: Yes
--- NOTE | 2022-12-23 14:46 | Hospitalist Progress Note ---
Date of Service December 23, 2022 Assessment & Plan (1) Neurogenic claudication due to lumbar spinal stenosis: (2) Diabetes mellitus, type 2: (3) Hypertension: (4) Chronic obstructive pulmonary disease: (5) History of TIA (transient ischemic attack): Plan 57-year-old female that presented to the [facility] today for an elective L5-S1 decompression and fusion surgery under the care of Dr. James after failed outpatient conservative management. Additional PMH includes HTN, COPD, gyf-fzcduun-nruncjntg diabetes type 2, history of TIA ( 2018 without residual effect), and GERD. 100 mL EBL; JESSIE drain x1. No mars catheter. Wears 3 LNC at home PRN at HS for COPD. Tolerative clear liquid diet. Goal for bedside chair for Neurogenic claudication due to lumbar spinal stenosis: POD# 1 s/p L5-S1 decompression fusion surgery under the care of Dr. James. Per ortho for pain control, wound care, anticoagulation and activities. EBL: 100mL; Monitor H&H, pre op Hgb from 11/28 13.6; trend in AM Continue incentive spirometry, demonstrated appropriate use of ISB at bedside Minimal pain involving the back without radiation Has been getting adequate pain medications PT and OT have been initiated Diabetes mellitus, type II: Chronic, stable Preop testing 11/28 A1c 7.6 Diet-controlled No acute issue HTN: Chronic stable Takes amlodipine and losartan; continue Pre-op ECHO 05/23/2022; EF 55 to 60% without any diastolic dysfunction or valve abnormalities; normal wall motion. EKG reviewed NSR; QTc 424. Blood pressure remains stable at 120/67 COPD: Chronic stable Wear 3 L supplemental oxygen at home PRN at night; on 3 LNC post op Takes Advair and Singulair; continue Albuterol as needed No wheezing and no shortness of breath at rest and saturating normally on room air History of TIA: Chronic stable Occurred in 2019 at [facility] without residual effects Takes high-dose Lipitor and baby aspirin; continue GERD: Chronic stable Takes Protonix; continue Disposition: PCP: Dr. Macedo CODE STATUS: Full code VTE prophylaxis: Per admitting team Remains medically stable Admission and Anticipated Discharge Date Admission Date: December 22, 2022 Subjective 12/23/2022 The patient was seen and examined in medical floor She complains to have back pain without any radiation and is status post lumbar surgery Denies any other significant symptoms Review of Systems Review of Systems: All systems reviewed and are unremarkable except as noted below Physical Exam Physical Exam: Lying in bed with some distress due to back pain Constitutional: well developed, well nourished, + ill appearing and + obese Eyes: PERRL, conjunctivae normal, anicteric sclerae ENMT: external ear and nose normal, oropharynx normal Neck: trachea midline, no thyromegaly Respiratory: no respiratory distress Auscultation: lungs clear to auscultation bilaterally Cardiovascular: Rate/Rhythm: regular rate and regular rhythm; not tachycardic Heart Sounds: normal S1 and normal S2; no murmur Extremities: + edema (Trace edema bilaterally) Gastrointestinal (Abdomen): Inspection/Auscultation: normal bowel sounds; abdomen not distended Percussion/Palpation: abdomen soft; abdomen nontender Musculoskeletal: No acute arthritis involving any joint but does have back pain Neurologic: normal touch/pain/proprioception and moves all extremities; no fo asia motor deficits Psychiatric: A+Ox3, euthymic affect Lymphatic: no cervical or axillary lymphadenopathy Results & Data Results & Data Vital Signs (Past 12 Hours) Vital Signs Temp Pulse Resp BP Pulse Ox O2 Del Method O2 Flow Rate 12/23/22 11:47 36.8 C 77 18 120/67 95 Room Air 12/23/22 07:03 36.8 C 77 18 127/66 94 Nasal Cannula 2 12/23/22 03:34 36.8 C 80 17 104/62 95 Nasal Cannula Laboratory Results Short CBC 12/23/22 Range/Units 05:24 WBC 15.62 H (4.8-10.8) K/ul Hgb 10.8 L (12.0-16.0) g/dl Hct 33.8 L (37.0-47.0) % Plt Count 308 (130-400) K/uL BMP 12/23/22 05:24 Sodium 139 Potassium 4.3 Chloride 107 Carbon Dioxide 30 BUN 14 Creatinine 1.06 Glucose 142 H Calcium 8.3 L Medications Administered Current Inpatient Medications Acetaminophen (Acetaminophen 500 Mg Tab) 1,000 mg PO Q8H PRN PRN Reason: MILD Pain Scale 1,2,3 & Pre PT Stop: 01/21/23 12:28 Al Hydrox/Mg Hydrox/Simethicone (Aluminum/Magnesium Susp 30 Ml Udc) 30 ml PO Q6H PRN PRN Reason: Dyspepsia Stop: 01/21/23 12:28 Albuterol (Albuterol Hfa 8 Gm Inhaler) 1 puffs INH QID PRN PRN Reason: Wheezing Stop: 01/21/23 12:28 Amlodipine Besylate (Amlodipine Besylate 5 Mg Tab) 10 mg PO [facility] Stop: 01/21/23 20:59 Last Admin: 12/22/22 19:47 Dose: 10 mg Aspirin (Aspirin 81 Mg Ectab) [facility] Stop: 01/22/23 08:59 Last Admin: 12/23/22 08:17 Dose: 81 mg Atorvastatin Calcium (Atorvastatin 40 Mg Tab) 40 mg PO [facility] Stop: 01/21/23 20:59 Last Admin: 12/22/22 19:49 Dose: 40 mg Bisacodyl (Bisacodyl 10 Mg Supp) 10 mg GA DAILY PRN PRN Reason: Constipation Stop: 01/21/23 12:28 Citalopram Hydrobromide (Citalopram 20 Mg Tab) 20 mg PO [facility] Stop: 01/22/23 08:59 Last Admin: 12/23/22 08:17 Dose: 20 mg Dextrose (Dextrose 50% 50 Ml Syringe) 25 - 50 ml IV UD PRN; Protocol PRN Reason: Hypoglycemia Protocol Stop: 01/21/23 13:59 Diphenhydramine HCl (Diphenhydramine Capsule 25 Mg Cap) 25 mg PO Q6H PRN PRN Reason: Allergic Rhinitis/Insomnia Stop: 01/21/23 12:28 Duloxetine HCl (Duloxetine Hcl 20 Mg Cap) 20 mg PO [facility] Stop: 01/22/23 08:59 Last Admin: 12/23/22 08:17 Dose: 20 mg Eszopiclone (Eszopiclone 1 Mg Tab) 2 mg PO [facility] Stop: 01/21/23 20:59 Last Admin: 12/22/22 20:03 Dose: 2 mg Famotidine (Famotidine 20 Mg Tab) 20 mg PO Q12H PRN PRN Reason: Dyspepsia Stop: 01/21/23 12:28 Glucagon (Glucagon For Inj 1 Mg Vial) 1 mg IM UD PRN; Protocol PRN Reason: Hypoglycemia Protocol Stop: 01/21/23 13:59 Glucose (Glucose 40% Gel 15 Gm Tube) 15 - 30 gm PO UD PRN; Protocol PRN Reason: Hypoglycemia Protocol Stop: 01/21/23 13:59 Glucose (Glucose 10 Tab/Tube) 4 - 8 tab PO UD PRN; Protocol PRN Reason: Hypoglycemia Protocol Stop: 01/21/23 13:59 Hydromorphone HCl (Hydromorphone Inj 0.5 Mg/0.5 Ml Syr) 0.5 mg IV Q3H PRN PRN Reason: MODERATE Pain (Scale 4,5,6) & Pre PT Stop: 01/05/23 12:28 Hydromorphone HCl (Hydromorphone Inj 1 Mg/Ml Syringe) 1 mg IV Q3H PRN PRN Reason: SEVERE Pain (Scale 7,8,9,10) Stop: 01/05/23 12:28 Hydroxyzine HCl (Hydroxyzine Hcl 25 Mg Tab) 25 mg PO Q8H PRN PRN Reason: Anxiety Stop: 01/21/23 12:28 Promethazine HCl 12.5 mg/ (Sodium Chloride) 50.5 mls @ 202 mls/hr IV Q6H PRN PRN Reason: Nausea &/or Vomiting Stop: 01/21/23 12:28 Dexamethasone 6 mg/ Syringe 1.5 mls @ 1 mls/min IV DAILY [facility] Stop: 12/25/22 09:02 Last Admin: 12/23/22 08:18 Dose: 1 mls/min Influenza Virus Vaccine Quadrival (Do Not Administer Flu Vaccine) 1 each N/A PRN PRN PRN Reason: Notification Stop: 01/21/23 12:28 Insulin Aspart (Insulin Aspart Per Unit Charge) 0 units SC [facility] Stop: 01/21/23 16:29 Last Admin: 12/23/22 12:25 Dose: 7 units Insulin Glargine (Lantus Per Unit Charge) 30 units SC DAILY [facility]; Protocol Stop: 12/25/22 09:01 Last Admin: 12/23/22 08:24 Dose: 30 units Lorazepam (Lorazepam 0.5 Mg Tab) 0.5 mg PO Q8H PRN PRN Reason: Sedation/Anxiety Stop: 01/21/23 12:28 Lorazepam (Lorazepam 2 Mg/1 Ml Vial) 0.5 mg IV Q8H PRN PRN Reason: Sedation/Anxiety Stop: 01/21/23 12:28 Losartan Potassium (Losartan Potassium 50 Mg Tab) 100 mg PO QAM [facility] Stop: 01/22/23 08:59 Last Admin: 12/23/22 08:17 Dose: 100 mg Magnesium Hydroxide (Magnesium Hydroxide Susp 30 Ml Udc) 30 ml PO Q24H PRN PRN Reason: Constipation Stop: 01/21/23 12:28 Metoclopramide HCl (Metoclopramide Hcl Inj 5 Mg/Ml 2 Ml Vial) 10 mg IV Q6H PRN PRN Reason: Nausea &/or Vomiting Stop: 01/21/23 12:28 Mirtazapine (Mirtazapine Tab 15 Mg Tab) 30 mg PO [facility] Stop: 01/21/23 20:59 Last Admin: 12/22/22 19:50 Dose: 30 mg Miscellaneous (Carbohydrates For Hypoglycemia ) 15 - 30 gm PO UD PRN PRN Reason: Hypoglycemia Treatment Stop: 01/21/23 13:59 Miscellaneous Information (Pharmacy Glycemic Mgmt Consult) 1 each N/A UD PRN PRN Reason: Consult Stop: 01/21/23 12:28 Montelukast Sodium (Montelukast Sodium 10 Mg Tablet) [facility] Stop: 01/22/23 08:59 Last Admin: 12/23/22 08:17 Dose: 10 mg Naloxone HCl (Naloxone Hcl 0.4 Mg/1 Ml Vial/Carp) 0.1 mg IV Q5M PRN PRN Reason: Oversedation/Resp depression Stop: 01/21/23 12:28 Ondansetron HCl (Ondansetron Inj 2 Mg/Ml 2 Ml Vial) 4 mg IV Q6H PRN PRN Reason: Nausea &/or Vomiting Stop: 01/21/23 12:28 Ondansetron HCl (Ondansetron 4 Mg Od Tab) 4 mg PO Q6H PRN PRN Reason: Nausea Stop: 01/21/23 12:28 Oxycodone HCl (Oxycodone Hcl Ir 5 Mg Tab (Immediate Release)) 5 - 10 mg PO Q4H PRN PRN Reason: Pain & Pre PT Stop: 01/05/23 12:28 Last Admin: 12/23/22 10:11 Dose: 10 mg Pantoprazole Sodium (Pantoprazole 40 Mg Tab) 40 mg PO [facility] Stop: 01/21/23 20:59 Last Admin: 12/22/22 19:51 Dose: 40 mg Pneumococcal Polyvalent Vaccine (Do Not Administer Pneumococcal Vaccine) 1 each N/A PRN PRN PRN Reason: Notification Stop: 01/21/23 12:28 Polyethylene Glycol (Polyethylene (Miralax) 17 Gm Pack) 17 gm PO Q6 [facility] Stop: 01/22/23 05:59 Last Admin: 12/23/22 11:38 Dose: 17 gm Senna/Docusate Sodium (Docusate Sodium/Senna 50/8.6mg Tab) 2 tab PO HS [facility] Stop: 01/21/23 20:59 Last Admin: 12/22/22 19:49 Dose: 2 tab Sodium Biphosphate/Sodium Phosphate (Sod Phosphate/Sod Biphosphate Enema 132 Ml Btl) 132 ml GA ONE PRN PRN Reason: Constipation Stop: 01/21/23 12:28 Tramadol HCl (Tramadol Hcl 50 Mg Tablet) 50 - 100 mg PO Q4H PRN PRN Reason: Moderate-Severe pain & Pre PT Stop: 01/21/23 12:28
[2022-12-23] MEDS: amLODIPine BESYLATE 5 MG TAB PO SCH (20:22)
[2022-12-23] MEDS: ATORVASTATIN 40 MG TAB PO SCH (20:23)
[2022-12-23] MEDS: DOCUSATE SODIUM/SENNA 50/8.6MG TAB PO SCH (20:23)
[2022-12-23] MEDS: MIRTAZAPINE TAB 15 MG TAB PO SCH (20:24)
[2022-12-23] MEDS: PANTOprazole 40 MG TAB PO SCH (20:24)
[2022-12-23] MEDS: ESZOPICLONE 1 MG TAB PO SCH (20:28)
[2022-12-24] MEDS: POLYETHYLENE (MIRALAX) 17 GM PACK PO SCH (06:10)
[2022-12-24] MEDS: oxyCODONE HCL IR 5 MG TAB (IMMEDIATE RELEASE) PO PRN ×2 (06:13→11:01)
[2022-12-24 06:27] LABS: Basophils # (auto) 0.05 K/uL (0-0.2); Basophils % (auto) 0.3 %; Eosinophils # (auto) 0.06 K/uL (0-0.50); Eosinophils % (auto) 0.3 %; Hematocrit (blood only) 32.4 % (37.0-47.0); Hemoglobin 10.8 g/dl (12.0-16.0); Immature Granulocytes # (auto) 0.26 K/uL (0.01-0.20); Immature Granulocytes % (auto) 1.4 %; Lymphocytes # (auto) 3.31 K/uL (1.2-3.4); Lymphocytes % (auto) 17.7 %; Mean Corpuscular Hemoglobin 28.3 pg (25.0-34.0); Mean Corpuscular Hgb Conc 33.3 g/dL (32.0-36.0); Mean Corpuscular Volume 84.8 fL (80.0-100.0); Mean Platelet Volume 10.5 fL (9.4-12.4); Monocytes # (auto) 1.84 K/uL (0.11-0.59); Monocytes % (auto) 9.9 %; Neutrophils # (auto) 13.13 K/uL (1.40-6.50); Neutrophils % (auto) 70.4 %; Platelet Count 331 K/uL (130-400); RDW Coefficient of Variation 15.7 % (11.5-14.5); RDW Standard Deviation 47.8 fL (36.4-46.3); Red Blood Count 3.82 M/uL (4.20-5.40); White Blood Count 18.65 K/ul (4.8-10.8)
[2022-12-24 06:32] LABS: BUN Creatinine Ratio 19.4 (10-20); Calcium 9.1 mg/dl (8.6-10.3); Creatinine Clr Calc Pharmacy 88.7 ml/min; Est GFR (African American) 113.1 ml/min; Est GFR (Non-African American) 97.6 ml/min; Potassium 3.9 mmol/L (3.5-5.1)
[2022-12-24] MEDS: MONTELUKAST SODIUM 10 MG TABLET PO SCH (08:36)
[2022-12-24] MEDS: ASPIRIN 81 MG ECTAB PO SCH (08:36)
[2022-12-24] MEDS: DULoxetine HCL 20 MG CAP PO SCH (08:36)
[2022-12-24] MEDS: LOSARTAN POTASSIUM 50 MG TAB PO SCH (08:36)
[2022-12-24] MEDS: CITALOPRAM 20 MG TAB PO SCH (08:36)
[2022-12-24] MEDS: dexAMETHasone 6 MG in SYRINGE 0 ML IV SCH (08:38)
[2022-12-24] MEDS: INSULIN ASPART PER UNIT CHARGE SC SCH (08:52)
[2022-12-24] MEDS: LANTUS PER UNIT CHARGE SC SCH (08:53)
--- NOTE | 2022-12-24 10:01 | Discharge Summary ---
Date of Service December 24, 2022 Admission HPI Per Admitting Provider This is a 57-year-old female presents with chronic persistent back and leg pain and failing since course of nonoperative care is here for surgical invention. Principal Diagnosis Lumbar spinal stenosis with radiculopathy Discharge Data Allergies Allergy/AdvReac Type Severity Reaction Status Date / Time cephalexin [From Keflex] Allergy Intermediate Hives Verified 12/22/22 07:51 latex Allergy Intermediate Hives Verified 12/22/22 07:51 Consultations 12/22/22 12:29 Consult Hospitalist Routine Procedures Performed Operation Date: 12/22/22 09:05 Actual Procedures p L5-S1 Decompression and Fusion, Spinal Cord Monitoring(Not Applicable) - Kiko James DO Ordered Studies 12/22/22 09:05 [place] lumbar spine 2-3V Routine Hospital Course (1) Neurogenic claudication due to lumbar spinal stenosis: Patient with lumbar depression fusion Sathya Castro taken orthopedic for postop lipid postop and when she is up and ambulating progress postop day #2. Pain well controlled. JESSIE drain decreasing probably. Excellent strength testing. Simply discharged home. Discharge orders instructions found in chart for further review. Total Time Total Time Spent Total Time Spent (In Minutes): 20 minutes Discharge Plan Discharge Items Patient Disposition: Home - Self-Care Reason For Visit: Radiculopathy, Lumbar Region Discharge Diagnosis: Lumbar radiculopathy Activity: As commented below Non-emergency contact: Primary Care Provider Call non-emergency contact if: you have any medication questions Follow-up/Referrals: Casey Macedo [Primary Care Provider] - Diet: Regular Addtl Attending Provider Instructions: ACTIVITY RECOMMENDATIONS: SELF CARE INSTRUCTIONS AFTER THORACIC/LUMBAR FUSIONS 1. You may walk to your tolerance. It is good exercise for your legs and back. Expect some back and intermittent leg aches and pains. 2. You may perform "counter-top" level activities (make a sandwich, [place] with a project, etc.). 3. No bending or lifting of more than 10 pounds or back twisting of any nature (roll like a log when turning in bed). 4. You may ride in a car for 20-30 minutes at a time. No driving until after your first visit with your doctor. 5. Frequent changes of position and restricting sitting to 30 minutes at a time will help limit the amount of back spasms and stiffness you may experience. 6. You may discontinue the use of ambulatory aids (cane, crutches, etc.) once your strength and confidence allow. 7. You may roll contour grinder the shower and let water strike your incision when you arrive home at least once daily. Do not take a tub bath, sit in a hot tub or go into a swimming pool until after your first recheck in the office. SPECIAL CARE INSTRUCTIONS: VERY IMPORTANT TO READ AND REVIEW A. Your surgical incision has been closed with a cosmetic suture under the skin that will dissolve in about 6 weeks. In 14 days, you can use a pair of clean scissors and cut the suture that is left outside of the skin at the ends of your incision. 1. The small skin tapes can be removed 7 days after surgery if they have not fallen off by that point. 2. You may keep the wound open to air as much as possible to promote healing after post-op day number 5 unless told otherwise by your doctor. 3. If you think the wound looks like it is becoming infected (redness or worsening drainage) and/or you are experiencing fever, chill or worsening back pain and muscle spasms, contact the office so that we may evaluate you as soon as possible. B. Complications are uncommon, but please contact us if you have any signs or symptoms of: 1. wound infection (fever higher than 102.5 degrees F, redness, separation of wound, drainage, or increasing pain from the incision) 2. blood clots in legs (pain, swelling, redness and warmth in legs) 3. urinary tract infection (fever higher than 102.5 degrees F, burning upon urination or increased frequency of urination) 4. nerve problems (inability to walk on your toes or heels, numbness, loss of bowel or bladder control) 5. any other symptoms that concern you C. Please call the office at if you have any concerns or questions about your operation or recovery. D. No smoking! Smoking drastically decreases the chance of a solid fusion. E. Do not take any anti-inflammatory medications (Indocin, Advil, Motrin, Aspirin, Naprosyn, etc.) as these may inhibit the chance of a solid fusion. Tylenol is okay to take for pain. MANAGING PAIN AFTER SPINAL SURGERY 1. Narcotic medication is intended for short-term use and will be provided for surgical pain. Surgical pain usually lasts for a period of 4-6 weeks. Narcotic medication includes Percocet, Vicodin, Darvocet, Tylenol #3 or Lortab. 2. Longer-term pain is more appropriately treated with non-narcotic medication such as Tylenol ES. 3. Muscle spasm is not appropriately treated with narcotics. Muscle relaxers such as Soma, Flexeril or Skelaxin can be used along with Tylenol ES. 4. Remember that we all live with some "aches and pains". This is not unusual or uncommon after an injury or as we get older. a. Back pain is expected and may include muscle spasms for 4 to 6 weeks after surgery. The pain should gradually improve. If the pain worsens for no apparent reason, please contact the office. b. Intermittent leg pain may also be experienced and should not be concerned about unless it worsens for no apparent reason. If so, please contact the office. 5. We will provide appropriate medication within the normal guidelines of their prescribed use. We will also be very cautious and aware of potential abuse and extended duration of patients' medication needs. a. Pain medications are for your comfort and to assist with sleep and rest so that the tissue can heal. They are not provided in order to return to normal activity and should not be used through the day. To do so or worsening pain at night can result from ongoing tissue damage and development of tolerance to the prescribed medicine. 6. Please allow 2-3 days to process refills. Prescriptions will not be mailed but must be picked up at the office. FOLLOW UP VISIT: Keep your scheduled follow-up appointment. Any questions, please call the office at . Pending Studies at Discharge: No Stand-Alone Forms: [facility], Smoking Cessation Medications and DC Order Prescriptions: New tramadol 50 mg tablet 50 mg PO Q6H PRN (Reason: pain, moderate) Qty: 30 0RF oxycodone 5 mg tablet 5 mg PO Q6H PRN (Reason: pain) Qty: 30 0RF Continued atorvastatin [Lipitor] 40 mg Tablet 40 mg PO HS metformin 500 mg Tablet 500 mg PO BID aspirin 81 mg Tablet,Delayed Release (Dr/Ec) 81 mg PO QAM tramadol 50 mg Tablet 50 mg PO BID PRN (Reason: Pain) citalopram [Celexa] 20 mg Tablet 20 mg PO QAM methocarbamol 750 mg Tablet 750 mg PO BID amlodipine 10 mg Tablet 10 mg PO HS pantoprazole [Protonix] 40 mg Tablet,Delayed Release (Dr/Ec) 40 mg PO HS mirtazapine [Remeron] 30 mg Tablet 30 mg PO HS montelukast [Singulair] 10 mg Tablet 10 mg PO QAM losartan [Cozaar] 100 mg Tablet 100 mg PO QAM celecoxib [Celebrex] 400 mg Capsule 400 mg PO QAM duloxetine [Cymbalta] 20 mg Capsule,Delayed Release(Dr/Ec) 20 mg PO QAM eszopiclone [Lunesta] 2 mg Tablet 2 mg PO HS cholecalciferol (vitamin D3) [Vitamin D3] 50 mcg (2,000 unit) Capsule 50 mcg PO QAM albuterol sulfate [Ventolin HFA] 90 mcg/actuation Hfa Aerosol Inhaler 1 inh INHALATION QID PRN (Reason: Wheezing) fluticasone propion-salmeterol [Advair HFA] 115-21 mcg/actuation Hfa Aerosol Inhaler 2 puff INHALATION BID PRN (Reason: Wheezing) Discharge Orders: Discharge Order (Routine); Ordered 12/24/22 Ordered By: Kiko James Admission Data Admit Date/Time: 12/22/22 11:09 Attending Provider: Kiko James Admit Provider: Kiko James Primary Care Provider: Casey Macedo Other Providers: Audelia Olguin ; Keshia Salinas
--- NOTE | 2022-12-24 11:22 | Hospitalist Progress Note ---
Date of Service December 24, 2022 Assessment & Plan (1) Neurogenic claudication due to lumbar spinal stenosis: (2) Diabetes mellitus, type 2: (3) Hypertension: (4) Chronic obstructive pulmonary disease: (5) History of TIA (transient ischemic attack): Plan 57-year-old female that presented to the [facility] today for an elective L5-S1 decompression and fusion surgery under the care of Dr. James after failed outpatient conservative management. Additional PMH includes HTN, COPD, [id number] diabetes type 2, history of TIA ( 2018 without residual effect), and GERD. 100 mL EBL; JESSIE drain x1. No mars catheter. Wears 3 LNC at home PRN at HS for COPD. Tolerative clear liquid diet. Goal for bedside chair for Neurogenic claudication due to lumbar spinal stenosis: POD# 2 s/p L5-S1 decompression fusion surgery under the care of Dr. James. Per ortho for pain control, wound care, anticoagulation and activities. EBL: 100mL; Monitor H&H, pre op Hgb from 11/28 13.6; trend in AM Continue incentive spirometry, demonstrated appropriate use of ISB at bedside Minimal pain involving the back without radiation Has been getting adequate pain medications PT and OT have been initiated Remains medically stable and the pain is controlled Will be discharged home this afternoon Reviewed her labs Hemoglobin and electrolytes remain unremarkable Medically stable to be discharged Diabetes mellitus, type II: Chronic, stable Preop testing 11/28 A1c 7.6 Diet-controlled No acute issue HTN: Chronic stable Takes amlodipine and losartan; continue Pre-op ECHO 05/23/2022; EF 55 to 60% without any diastolic dysfunction or valve abnormalities; normal wall motion. EKG reviewed NSR; QTc 424. Blood pressure remains stable at 120/67 COPD: Chronic stable Wear 3 L supplemental oxygen at home PRN at night; on 3 LNC post op Takes Advair and Singulair; continue Albuterol as needed No wheezing and no shortness of breath at rest and saturating normally on room air History of TIA: Chronic stable Occurred in 2018 at [facility] [place] without residual effects Takes high-dose Lipitor and baby aspirin; continue GERD: Chronic stable Takes Protonix; continue Disposition: PCP: Dr. Macedo CODE STATUS: Full code VTE prophylaxis: Per admitting team Remains medically stable Admission and Anticipated Discharge Date Admission Date: December 22, 2022 Subjective 12/23/2022 The patient was seen and examined in medical floor She complains to have back pain without any radiation and is status post lumbar surgery Denies any other significant symptoms 12/24/2022 The patient was seen and examined in medical floor She is out of bed on a chair Denies any symptoms and has not had any bowel movement She has been ambulating and will be discharged home today by the primary Review of Systems Review of Systems: All systems reviewed and are unremarkable except as noted below Physical Exam Physical Exam: Sitting on a chair without any acute distress Constitutional: well developed, well nourished, + ill appearing and + obese Eyes: PERRL, conjunctivae normal, anicteric sclerae ENMT: external ear and nose normal, oropharynx normal Neck: trachea midline, no thyromegaly Respiratory: no respiratory distress Auscultation: lungs clear to auscultation bilaterally Cardiovascular: Rate/Rhythm: regular rate and regular rhythm; not tachycardic Heart Sounds: normal S1 and normal S2; no murmur Extremities: + edema (Trace edema bilaterally) Gastrointestinal (Abdomen): Inspection/Auscultation: normal bowel sounds; abdomen not distended Percussion/Palpation: abdomen soft; abdomen nontender Neurologic: normal touch/pain/proprioception and moves all extremities; no focal motor deficits Psychiatric: A+Ox3, euthymic affect Lymphatic: no cervical or axillary lymphadenopathy Results & Data Results & Data Vital Signs (Past 12 Hours) Vital Signs Temp Pulse Resp BP BP Pulse Ox O2 Del Method 12/24/22 08:35 76 112/71 12/24/22 07:21 Room Air 12/24/22 05:53 36.8 C 78 17 133/65 94 Room Air Laboratory Results Short CBC 12/24/22 Range/Units 05:34 WBC 18.65 H (4.8-10.8) K/ul Hgb 10.8 L (12.0-16.0) g/dl Hct 32.4 L (37.0-47.0) % Plt Count 331 (130-400) K/uL BMP 12/24/22 05:34 Sodium 139 Potassium 3.9 Chloride 108 H Carbon Dioxide 28 BUN 13 Creatinine 0.67 D Glucose 129 H Calcium 9.1 Medications Administered Current Inpatient Medications Acetaminophen (Acetaminophen 500 Mg Tab) 1,000 mg PO Q8H PRN PRN Reason: MILD Pain Scale 1,2,3 & Pre PT Stop: 01/21/23 12:28 Al Hydrox/Mg Hydrox/Simethicone (Aluminum/Magnesium Susp 30 Ml Udc) 30 ml PO Q6H PRN PRN Reason: Dyspepsia Stop: 01/21/23 12:28 Albuterol (Albuterol Hfa 8 Gm Inhaler) 1 puffs INH QID PRN PRN Reason: Wheezing Stop: 01/21/23 12:28 Amlodipine Besylate (Amlodipine Besylate 5 Mg Tab) 10 mg PO [facility] Stop: 01/21/23 20:59 Last Admin: 12/23/22 20:22 Dose: 10 mg Aspirin (Aspirin 81 Mg Ectab) [facility] Stop: 01/22/23 08:59 Last Admin: 12/24/22 08:36 Dose: 81 mg Atorvastatin Calcium (Atorvastatin 40 Mg Tab) 40 mg PO [facility] Stop: 01/21/23 20:59 Last Admin: 12/23/22 20:23 Dose: 40 mg Bisacodyl (Bisacodyl 10 Mg Supp) 10 mg AK DAILY PRN PRN Reason: Constipation Stop: 01/21/23 12:28 Citalopram Hydrobromide (Citalopram 20 Mg Tab) 20 mg PO [facility] Stop: 01/22/23 08:59 Last Admin: 12/24/22 08:36 Dose: 20 mg Dextrose (Dextrose 50% 50 Ml Syringe) 25 - 50 ml IV UD PRN; Protocol PRN Reason: Hypoglycemia Protocol Stop: 01/21/23 13:59 Diphenhydramine HCl (Diphenhydramine Capsule 25 Mg Cap) 25 mg PO Q6H PRN PRN Reason: Allergic Rhinitis/Insomnia Stop: 01/21/23 12:28 Duloxetine HCl (Duloxetine Hcl 20 Mg Cap) [facility] Stop: 01/22/23 08:59 Last Admin: 12/24/22 08:36 Dose: 20 mg Eszopiclone (Eszopiclone 1 Mg Tab) 2 mg PO [facility] Stop: 01/21/23 20:59 Last Admin: 12/23/22 20:28 Dose: 2 mg Famotidine (Famotidine 20 Mg Tab) 20 mg PO Q12H PRN PRN Reason: Dyspepsia Stop: 01/21/23 12:28 Glucagon (Glucagon For Inj 1 Mg Vial) 1 mg IM UD PRN; Protocol PRN Reason: Hypoglycemia Protocol Stop: 01/21/23 13:59 Glucose (Glucose 40% Gel 15 Gm Tube) 15 - 30 gm PO UD PRN; Protocol PRN Reason: Hypoglycemia Protocol Stop: 01/21/23 13:59 Glucose (Glucose 10 Tab/Tube) 4 - 8 tab PO UD PRN; Protocol PRN Reason: Hypoglycemia Protocol Stop: 01/21/23 13:59 Hydromorphone HCl (Hydromorphone Inj 0.5 Mg/0.5 Ml Syr) 0.5 mg IV Q3H PRN PRN Reason: MODERATE Pain (Scale 4,5,6) & Pre PT Stop: 01/05/23 12:28 Hydromorphone HCl (Hydromorphone Inj 1 Mg/Ml Syringe) 1 mg IV Q3H PRN PRN Reason: SEVERE Pain (Scale 7,8,9,10) Stop: 01/05/23 12:28 Hydroxyzine HCl (Hydroxyzine Hcl 25 Mg Tab) 25 mg PO Q8H PRN PRN Reason: Anxiety Stop: 01/21/23 12:28 Promethazine HCl 12.5 mg/ (Sodium Chloride) 50.5 mls @ 202 mls/hr IV Q6H PRN PRN Reason: Nausea &/or Vomiting Stop: 01/21/23 12:28 Dexamethasone 6 mg/ Syringe 1.5 mls @ 1 mls/min IV DAILY SARAH Stop: 12/25/22 09:02 Last Admin: 12/24/22 08:38 Dose: 1 mls/min Influenza Virus Vaccine Quadrival (Do Not Administer Flu Vaccine) 1 each N/A PRN PRN PRN Reason: Notification Stop: 01/21/23 12:28 Insulin Aspart (Insulin Aspart Per Unit Charge) 0 units SC [facility] Stop: 01/21/23 16:29 Last Admin: 12/24/22 08:52 Dose: 9 units Insulin Glargine (Lantus Per Unit Charge) 30 units SC DAILY [facility]; Protocol Stop: 12/25/22 09:01 Last Admin: 12/24/22 08:53 Dose: 30 units Lorazepam (Lorazepam 0.5 Mg Tab) 0.5 mg PO Q8H PRN PRN Reason: Sedation/Anxiety Stop: 01/21/23 12:28 Lorazepam (Lorazepam 2 Mg/1 Ml Vial) 0.5 mg IV Q8H PRN PRN Reason: Sedation/Anxiety Stop: 01/21/23 12:28 Losartan Potassium (Losartan Potassium 50 Mg Tab) 100 mg PO QAM [facility] Stop: 01/22/23 08:59 Last Admin: 12/24/22 08:36 Dose: 100 mg Magnesium Hydroxide (Magnesium Hydroxide Susp 30 Ml Udc) 30 ml PO Q24H PRN PRN Reason: Constipation Stop: 01/21/23 12:28 Metoclopramide HCl (Metoclopramide Hcl Inj 5 Mg/Ml 2 Ml Vial) 10 mg IV Q6H PRN PRN Reason: Nausea &/or Vomiting Stop: 01/21/23 12:28 Mirtazapine (Mirtazapine Tab 15 Mg Tab) 30 mg PO [facility] Stop: 01/21/23 20:59 Last Admin: 12/23/22 20:24 Dose: 30 mg Miscellaneous (Carbohydrates For Hypoglycemia ) 15 - 30 gm PO UD PRN PRN Reason: Hypoglycemia Treatment Stop: 01/21/23 13:59 Miscellaneous Information (Pharmacy Glycemic Mgmt Consult) 1 each N/A UD PRN PRN Reason: Consult Stop: 01/21/23 12:28 Montelukast Sodium (Montelukast Sodium 10 Mg Tablet) [facility] Stop: 01/22/23 08:59 Last Admin: 12/24/22 08:36 Dose: 10 mg Naloxone HCl (Naloxone Hcl 0.4 Mg/1 Ml Vial/Carp) 0.1 mg IV Q5M PRN PRN Reason: Oversedation/Resp depression Stop: 01/21/23 12:28 Ondansetron HCl (Ondansetron Inj 2 Mg/Ml 2 Ml Vial) 4 mg IV Q6H PRN PRN Reason: Nausea &/or Vomiting Stop: 01/21/23 12:28 Ondansetron HCl (Ondansetron 4 Mg Od Tab) 4 mg PO Q6H PRN PRN Reason: Nausea Stop: 01/21/23 12:28 Oxycodone HCl (Oxycodone Hcl Ir 5 Mg Tab (Immediate Release)) 5 - 10 mg PO Q4H PRN PRN Reason: Pain & Pre PT Stop: 01/05/23 12:28 Last Admin: 12/24/22 11:01 Dose: 10 mg Pantoprazole Sodium (Pantoprazole 40 Mg Tab) 40 mg PO HS SARAH Stop: 01/21/23 20:59 Last Admin: 12/23/22 20:24 Dose: 40 mg Pneumococcal Polyvalent Vaccine (Do Not Administer Pneumococcal Vaccine) 1 each N/A PRN PRN PRN Reason: Notification Stop: 01/21/23 12:28 Polyethylene Glycol (Polyethylene (Miralax) 17 Gm Pack) 17 gm PO Q6 SARAH Stop: 01/22/23 05:59 Last Admin: 12/24/22 06:10 Dose: 17 gm Senna/Docusate Sodium (Docusate Sodium/Senna 50/8.6mg Tab) 2 tab PO HS [facility] Stop: 01/21/23 20:59 Last Admin: 12/23/22 20:23 Dose: 2 tab Sodium Biphosphate/Sodium Phosphate (Sod Phosphate/Sod Biphosphate Enema 132 Ml Btl) 132 ml AK ONE PRN PRN Reason: Constipation Stop: 01/21/23 12:28 Tramadol HCl (Tramadol Hcl 50 Mg Tablet) 50 - 100 mg PO Q4H PRN PRN Reason: Moderate-Severe pain & Pre PT Stop: 01/21/23 12:28
== END 2022-12-24 11:29 | disposition home or self-care (01) | DRG 455 ==
LOC: ASU 07:20 → 3E 11:09